=== PATIENT | male | born 1990 | race Caucasian/White ===

== ENCOUNTER 2024-02-18 16:00 | Outpatient (CLI) | payer OTHER | END 2024-02-18 16:01 | disposition home or self-care (01) | LOC: CSHSLEEP 16:00 | PROVIDERS: ATTEND Internal Medicine | DX: G47.33 Obstructive sleep apnea (adult) (pediatric) (principal) | CPT/HCPCS: 95800 ==

== ENCOUNTER 2024-04-06 08:45 | Outpatient (CLI) | payer OTHER | END 2024-04-06 08:46 | disposition home or self-care (01) | LOC: CSHSLEEP 08:45 | PROVIDERS: ATTEND Internal Medicine | DX: G47.33 Obstructive sleep apnea (adult) (pediatric) (principal) | CPT/HCPCS: 95811 ==

== ENCOUNTER 2025-02-28 09:40 | Outpatient (CLI) | payer OTHER | END 2025-02-28 09:41 | disposition home or self-care (01) | LOC: CSHULT 09:40 | PROVIDERS: ATTEND Family Medicine | DX: K58.0 Irritable bowel syndrome with diarrhea (principal); K82.4 Cholesterolosis of gallbladder | CPT/HCPCS: 76700 ==